=== PATIENT | male | born 1935 | race Caucasian/White ===

== ENCOUNTER 2017-02-06 22:25 | Emergency (ER) | payer MEDICARE ==
[~2017-02-06] VITALS: Ht 188 cm; Wt 93.8 kg
[~2017-02-06 22:25] MED LIST: ASPI81 PO; AVOD0.5C PO; CYAN1000P IM; LIPI40TA PO; METO25 PO; NEXI40CA PO; NITR0.4S SL; RAPA8CAP PO; TRAV0.00 EACH EYE
[2017-02-06 22:41] VITALS: BP 154/86; PULSE 90; RESP 18; TEMP 99; O2SAT 94
== END 2017-02-06 23:53 | disposition left against medical advice (07) ==
LOC: PHED 22:25
DX: I10 Essential (primary) hypertension (principal)
CPT/HCPCS: 99281